=== PATIENT | male | born 1940 | race Caucasian/White ===

== ENCOUNTER 2022-10-18 09:39 | Day surgery (SDC) | payer MEDICARE ==
[2022-10-18] MEDS ORDERED: Sodium Chloride 0.9% 10 ML Syringe IV ONE (09:40)
[2022-10-18] MEDS ORDERED: Dexamethasone 4 MG/ML SDV IV ONE (09:40)
[2022-10-18] MEDS ORDERED: Midazolam 1 MG/ML 2 ML SDV IV ONE (09:40)
[2022-10-18] MEDS ORDERED: Ondansetron 4 MG/2 ML SDV IVPUSH PRN (09:45)
[2022-10-18] MEDS ORDERED: Timolol Maleate 0.5% Ophth Soln 5 ML Bottle EYELF ONE (09:45)
[2022-10-18] MEDS ORDERED: Cataract Ophth Solution EYELF ONE (09:45)
[2022-10-18] MEDS ORDERED: Sodium Chloride 0.9% 10 ML Syringe FLUSH PRN (09:45)
[2022-10-18] MEDS ORDERED: Proparacaine 0.5% Ophth Soln 15 ML Bottle EYELF ONE (09:45)
[2022-10-18] MEDS ORDERED: Moxifloxacin 0.5% Ophth Soln 3 ML Bottle EYELF ONE (09:45)
[2022-10-18] MEDS ORDERED: Acetaminophen/Codeine 300-30 MG Tab PO PRN (09:45)
[2022-10-18] MEDS ORDERED: Povidone-Iodine 5% Sterile Ophth Soln 30 ML Bottle EYELF ONE ×2 (09:45→10:29)
[2022-10-18] MEDS ORDERED: Phenylephrine 10% Ophth Soln 5 ML Bot EYELF PRN (09:45)
[2022-10-18] MEDS ORDERED: Acetaminophen 325 MG Tab PO PRN (09:45)
[2022-10-18] MEDS ORDERED: Tropicamide 1% Ophth Soln 15 ML Bottle EYELF ONE (09:45)
[2022-10-18] MEDS ORDERED: Lidocaine 1% 30 ML SDV ONE (10:29)
[2022-10-18] MEDS ORDERED: Balanced Salt Solution Ophth Irrig 500 ML Bottle IOCULAR ONE (10:31)
[2022-10-18] MEDS ORDERED: Vancomycin 500 MG SDV EYELF ONE (10:31)
[2022-10-18] MEDS ORDERED: Diclofenac Sodium 0.1% Ophth Soln 5 ML Bottle EYELF ONE (10:31)
[2022-10-18] MEDS ORDERED: Tetracaine HCl/PF 0.5% 4 ML Bottle EYELF ONE (10:31)
[2022-10-18] MEDS ORDERED: Chondroitin Sulfate/Hyaluronate Sodium Ophth Inj 0.75 ML Syringe EYELF ONE (10:31)
[2022-10-18] MEDS ORDERED: Brimonidine 0.2% Ophth Soln 5 ML Bottle EYELF ONE (10:31)
[2022-10-18] MEDS ORDERED: Tobramycin 0.3% Ophth Oint 3.5 GM Tube EYELF ONE (10:32)
== END 2022-10-18 11:30 | disposition home or self-care (01) ==
LOC: DL.SDS 09:39
PROVIDERS: ATTEND Ophthalmology
DX: H25.812 Combined forms of age-related cataract, left eye (principal); I10 Essential (primary) hypertension; E78.00 Pure hypercholesterolemia, unspecified; Z88.0 Allergy status to penicillin; Z87.891 Personal history of nicotine dependence; Z98.890 Other specified postprocedural states; Z79.899 Other long term (current) drug therapy; Z79.82 Long term (current) use of aspirin; Z88.6 Allergy status to analgesic agent; Z95.5 Presence of coronary angioplasty implant and graft
CPT/HCPCS: 00142; 66984; A9270; J3370; V2632; J1100; J2250; J3490

== ENCOUNTER 2022-11-01 07:11 | Day surgery (SDC) | payer MEDICARE ==
[2022-11-01] MEDS ORDERED: Tropicamide 1% Ophth Soln 15 ML Bottle EYERT ONE (07:30)
[2022-11-01] MEDS ORDERED: Povidone-Iodine 5% Sterile Ophth Soln 30 ML Bottle EYERT ONE ×2 (07:30→08:41)
[2022-11-01] MEDS ORDERED: Moxifloxacin 0.5% Ophth Soln 3 ML Bottle EYERT ONE (07:30)
[2022-11-01] MEDS ORDERED: Timolol Maleate 0.5% Ophth Soln 5 ML Bottle EYERT ONE (07:30)
[2022-11-01] MEDS ORDERED: Sodium Chloride 0.9% 10 ML Syringe FLUSH PRN (07:30)
[2022-11-01] MEDS ORDERED: Ondansetron 4 MG/2 ML SDV IVPUSH PRN (07:30)
[2022-11-01] MEDS ORDERED: Acetaminophen 325 MG Tab PO PRN (07:30)
[2022-11-01] MEDS ORDERED: Cataract Ophth Solution EYERT ONE (07:30)
[2022-11-01] MEDS ORDERED: Proparacaine 0.5% Ophth Soln 15 ML Bottle EYERT ONE ×2 (07:30→08:41)
[2022-11-01] MEDS ORDERED: Phenylephrine 10% Ophth Soln 5 ML Bot EYERT PRN (07:30)
[2022-11-01] MEDS ORDERED: Acetaminophen/Codeine 300-30 MG Tab PO PRN (07:30)
[2022-11-01] MEDS ORDERED: Lidocaine 1% 30 ML SDV ONE (08:49)
[2022-11-01] MEDS ORDERED: Balanced Salt Solution Ophth Irrig 15 ML Bottle EYERT ONE (08:49)
[2022-11-01] MEDS ORDERED: Vancomycin 500 MG SDV EYERT ONE (08:50)
[2022-11-01] MEDS ORDERED: Chondroitin Sulfate/Hyaluronate Sodium Ophth Inj 0.75 ML Syringe EYERT ONE (08:51)
[2022-11-01] MEDS ORDERED: Apraclonidine 0.5% Ophth Soln 5 ML Bot EYERT ONE (08:52)
[2022-11-01] MEDS ORDERED: Dexamethasone/Neomycin/Polymyxin B Ophth Oint 3.5 GM Tube EYERT ONE (08:53)
== END 2022-11-01 09:15 | disposition home or self-care (01) ==
LOC: DL.SDS 07:11
PROVIDERS: ATTEND Ophthalmology
DX: H25.811 Combined forms of age-related cataract, right eye (principal); I10 Essential (primary) hypertension; E78.00 Pure hypercholesterolemia, unspecified; I25.10 Atherosclerotic heart disease of native coronary artery without angina pectoris; Z88.0 Allergy status to penicillin; Z88.8 Allergy status to other drugs, medicaments and biological substances; Z87.891 Personal history of nicotine dependence; Z79.02 Long term (current) use of antithrombotics/antiplatelets; Z79.899 Other long term (current) drug therapy; Z95.5 Presence of coronary angioplasty implant and graft
CPT/HCPCS: 00142; A9270-GY; J3370; J3490